=== PATIENT | female | born 1965 | race Two or more races ===

== ENCOUNTER 2018-03-06 23:02 | Emergency (ER) | payer OTHER ==
[2018-03-07] MEDS ORDERED: ONDANSETRON 4 MG INJ (00:20)
[2018-03-07 00:23] LABS: ADD MAN DIFF? NO
[2018-03-07] MEDS: morphine 4 MG/ML VIAL IV ×2 (00:23→01:52)
[2018-03-07] MEDS: SOD CHLORIDE 0.9% 1,000 ML IV (00:23)
[2018-03-07 00:24] LABS: BASOPHIL # 0.1 10^3/ul (0.0-0.1); BASOPHILS % 0.7 % (0.0-2.0); EOSINOPHILS # 0.4 10^3/ul (0.0-0.5); EOSINOPHILS % 5.5 % (0.0-7.0); HEMATOCRIT 40.6 % (37.0-47.0); HEMOGLOBIN 14.5 g/dl (12.0-16.0); LYMPHOCYTES # 2.2 10^3/ul (0.8-2.9); LYMPHOCYTES % 29.8 % (15.0-51.0); MEAN CORPUSCULAR HEMOGLOBIN 32.6 pg (29.0-33.0); MEAN CORPUSCULAR HGB CONC 35.7 g/dl (32.0-37.0); MEAN CORPUSCULAR VOLUME 91.2 fl (82.0-101.0); MONOCYTE # 0.6 10^3/ul (0.3-0.9); NEUTROPHIL # 4.2 10^3/ul (1.6-7.5); NEUTROPHILS % 55.9 % (39.0-77.0); PLATELET COUNT 304 10^3/UL (140-415); RED BLOOD COUNT 4.45 10^6/ul (4.20-5.40); RED CELL DISTRIBUTION WIDTH 11.6 % (11.5-14.5)
[2018-03-07 00:24] LABS: WHITE BLOOD COUNT 7.5 10^3/ul (4.8-10.8)
[2018-03-07 00:45] LABS: ALANINE AMINOTRANSFERASE 61 IU/L (13-69); ALBUMIN 4.5 g/dl (3.3-4.9); ALKALINE PHOSPHATASE 104 IU/L (42-121); ANION GAP 17 (8-16); ASPARTATE AMINO TRANSFERASE 32 IU/L (15-46); BILIRUBIN,INDIRECT 0.3 mg/dl (0-1.1); BILIRUBIN,TOTAL 0.3 mg/dl (0.2-1.3); BLOOD UREA NITROGEN 8 mg/dl (7-20); CALCIUM 9.8 mg/dl (8.4-10.2); CARBON DIOXIDE 27 mmol/L (21-31); CHLORIDE 100 mmol/L (97-110); CREATININE 0.46 mg/dl (0.44-1.00); GLUCOSE 275 mg/dl (70-220); LIPASE 102 U/L (23-300); POTASSIUM 4.1 mmol/L (3.5-5.1); SODIUM 140 mmol/L (135-144); TOTAL PROTEIN 7.5 g/dl (6.1-8.1)
[2018-03-07 00:46] LABS: ADD UMIC NO; UR ASCORBIC ACID NEGATIVE (NEGATIVE); UR BACTERIA FEW /HPF (NONE SEEN); UR BILIRUBIN (Dip) NEGATIVE (NEGATIVE); UR BLOOD (Dip) NEGATIVE (NEGATIVE); UR CLARITY SLIGHTLY CLOUDY (CLEAR); UR COLOR YELLOW (YELLOW); UR GLUCOSE (Dip) 3+ mg/dL (NEGATIVE); UR KETONES (Dip) NEGATIVE (NEGATIVE); UR LEUKOCYTE ESTERASE (Dip) NEGATIVE Leu/ul (NEGATIVE); UR NITRITE (Dip) NEGATIVE (NEGATIVE); UR RBC 3 /HPF (0-5); UR SPECIFIC GRAVITY (Dip) 1.033 (1.003-1.030); UR SQUAMOUS EPITHELIAL CELL FEW /HPF (FEW); UR TOTAL PROTEIN (Dip) NEGATIVE (NEGATIVE); UR UROBILINOGEN (Dip) NEGATIVE (NEGATIVE); UR WBC 1 /HPF (0-5)
[2018-03-07 00:57] LABS: TROPONIN-I < 0.010 ng/ml (0.000-0.120)
[2018-03-07] MEDS: KETOROLAC 30 MG INJ IV (01:53)
[2018-03-07] MEDS: HYDROmorphONE 0.5 MG/0.5 ML SYG IV (04:09)
== END 2018-03-07 06:04 | disposition short-term general hospital (02) ==
LOC: E/R 23:02
DX: K29.80 Duodenitis without bleeding (principal); E11.65 Type 2 diabetes mellitus with hyperglycemia; I10 Essential (primary) hypertension; E11.9 Type 2 diabetes mellitus without complications; Z79.84 Long term (current) use of oral hypoglycemic drugs
CPT/HCPCS: 36415; 74176; 80053; 81001; 81003; 83690; 84484; 85025; 96374; 96375; 96376; 99285-25

== ENCOUNTER 2018-06-23 06:10 | Emergency (ER) | payer OTHER ==
[2018-06-23] MEDS: HYDROmorphONE 1 MG/ML SYG IV (06:41)
[2018-06-23] MEDS: ONDANSETRON 4 MG INJ IV (06:41)
[2018-06-23] MEDS: SOD CHLORIDE 0.9% 1,000 ML IV (06:41)
[2018-06-23 06:48] LABS: ADD MAN DIFF? NO
[2018-06-23 06:51] LABS: BASOPHIL # 0.1 10^3/ul (0.0-0.1); BASOPHILS % 0.7 % (0.0-2.0); EOSINOPHILS # 0.5 10^3/ul (0.0-0.5); EOSINOPHILS % 5.2 % (0.0-7.0); HEMATOCRIT 40.7 % (37.0-47.0); HEMOGLOBIN 14.4 g/dl (12.0-16.0); LYMPHOCYTES # 3.6 10^3/ul (0.8-2.9); LYMPHOCYTES % 36.2 % (15.0-51.0); MEAN CORPUSCULAR HEMOGLOBIN 32.2 pg (29.0-33.0); MEAN CORPUSCULAR HGB CONC 35.4 g/dl (32.0-37.0); MEAN CORPUSCULAR VOLUME 91.1 fl (82.0-101.0); MEAN PLATELET VOLUME 9.9 fl (7.4-10.4); MONOCYTE # 0.7 10^3/ul (0.3-0.9); MONOCYTES % 7.3 % (0.0-11.0); NEUTROPHIL # 5.1 10^3/ul (1.6-7.5); NEUTROPHILS % 50.4 % (39.0-77.0); PLATELET COUNT 298 10^3/UL (140-415); RED BLOOD COUNT 4.47 10^6/ul (4.20-5.40); RED CELL DISTRIBUTION WIDTH 11.9 % (11.5-14.5)
[2018-06-23 06:53] LABS: ADD UMIC NO; UR ASCORBIC ACID NEGATIVE (NEGATIVE); UR BILIRUBIN (Dip) NEGATIVE (NEGATIVE); UR BLOOD (Dip) NEGATIVE (NEGATIVE); UR CLARITY SLIGHTLY CLOUDY (CLEAR); UR COLOR YELLOW (YELLOW); UR GLUCOSE (Dip) NEGATIVE (NEGATIVE); UR KETONES (Dip) NEGATIVE (NEGATIVE); UR LEUKOCYTE ESTERASE (Dip) NEGATIVE Leu/ul (NEGATIVE); UR MUCUS FEW /HPF (NONE SEEN); UR NITRITE (Dip) NEGATIVE (NEGATIVE); UR RBC 2 /HPF (0-5); UR SPECIFIC GRAVITY (Dip) 1.013 (1.003-1.030); UR TOTAL PROTEIN (Dip) NEGATIVE (NEGATIVE); UR UROBILINOGEN (Dip) NEGATIVE (NEGATIVE); UR WBC 7 /HPF (0-5)
[2018-06-23 07:16] LABS: ALANINE AMINOTRANSFERASE 41 IU/L (13-69); ALBUMIN 4.1 g/dl (3.3-4.9); ALBUMIN/GLOBULIN RATIO 1.05; ALKALINE PHOSPHATASE 88 IU/L (42-121); ANION GAP 13 (5-13); ASPARTATE AMINO TRANSFERASE 26 IU/L (15-46); BILIRUBIN,INDIRECT 0.9 mg/dl (0-1.1); BILIRUBIN,TOTAL 0.9 mg/dl (0.2-1.3); BLOOD UREA NITROGEN 7 mg/dl (7-20); CALCIUM 10.2 mg/dl (8.4-10.2); CARBON DIOXIDE 23 mmol/L (21-31); CHLORIDE 106 mmol/L (97-110); CREATININE 0.37 mg/dl (0.44-1.00); GLUCOSE 149 mg/dl (70-220); LIPASE 106 U/L (23-300); POTASSIUM 3.8 mmol/L (3.5-5.1); SODIUM 142 mmol/L (135-144)
[2018-06-23 07:26] LABS: INR 0.89; PROTIME 12.1 Sec (11.9-14.9); PT RATIO 0.9
[2018-06-23 07:27] LABS: PARTIAL THROMBOPLASTIN TIME 31.6 Sec (23.0-35.0)
[2018-06-23] MEDS: DICYCLOMINE 20 MG INJ IM (09:18)
[2018-06-23] MEDS: HYDROCODONE/APAP (10/325) TAB PO (09:48)
== END 2018-06-23 10:12 | disposition home or self-care (01) ==
LOC: E/R 06:10
DX: R10.11 Right upper quadrant pain (principal); R19.7 Diarrhea, unspecified; E11.9 Type 2 diabetes mellitus without complications; I10 Essential (primary) hypertension; Z79.84 Long term (current) use of oral hypoglycemic drugs
CPT/HCPCS: 36415; 74176; 80053; 81001; 81003; 83690; 85025; 85610; 85730; 96372; 96374; 96375; 99285-25

== ENCOUNTER 2019-01-10 00:36 | Emergency (ER) | payer OTHER ==
[2019-01-10 01:44] LABS: ADD MAN DIFF? NO
[2019-01-10 01:47] LABS: BASOPHIL # 0.1 10^3/ul (0.0-0.1); BASOPHILS % 0.6 % (0.0-2.0); EOSINOPHILS # 0.5 10^3/ul (0.0-0.5); EOSINOPHILS % 6.2 % (0.0-7.0); HEMATOCRIT 37.1 % (37.0-47.0); HEMOGLOBIN 12.9 g/dl (12.0-16.0); LYMPHOCYTES # 2.2 10^3/ul (0.8-2.9); LYMPHOCYTES % 28.3 % (15.0-51.0); MEAN CORPUSCULAR HEMOGLOBIN 31.9 pg (29.0-33.0); MEAN CORPUSCULAR HGB CONC 34.8 g/dl (32.0-37.0); MEAN CORPUSCULAR VOLUME 91.6 fl (82.0-101.0); MEAN PLATELET VOLUME 10.2 fl (7.4-10.4); MONOCYTE # 0.5 10^3/ul (0.3-0.9); MONOCYTES % 6.6 % (0.0-11.0); NEUTROPHIL # 4.5 10^3/ul (1.6-7.5); NEUTROPHILS % 58.2 % (39.0-77.0); PLATELET COUNT 274 10^3/UL (140-415); RED BLOOD COUNT 4.05 10^6/ul (4.20-5.40); RED CELL DISTRIBUTION WIDTH 12.3 % (11.5-14.5)
[2019-01-10 01:47] LABS: WHITE BLOOD COUNT 7.7 10^3/ul (4.8-10.8)
[2019-01-10] MEDS: ONDANSETRON 4 MG INJ IV (01:52)
[2019-01-10] MEDS: HYDROmorphONE 1 MG/ML SYG IV (01:52)
[2019-01-10 02:04] LABS: ANION GAP 11 (5-13); BLOOD UREA NITROGEN 8 mg/dl (7-20); CALCIUM 9.7 mg/dl (8.4-10.2); CARBON DIOXIDE 26 mmol/L (21-31); CHLORIDE 105 mmol/L (97-110); CREATININE 0.35 mg/dl (0.44-1.00); Estimated GFR > 60 mL/min (>60); GLUCOSE 248 mg/dl (70-220); POTASSIUM 3.8 mmol/L (3.5-5.1); SODIUM 142 mmol/L (135-144)
[2019-01-10 02:15] LABS: TROPONIN-I < 0.012 ng/ml (0.000-0.120)
== END 2019-01-10 04:36 | disposition home or self-care (01) ==
LOC: E/R 00:36
DX: S09.90XA Unspecified injury of head, initial encounter (principal); S16.1XXA Strain of muscle, fascia and tendon at neck level, initial encounter; S39.012A Strain of muscle, fascia and tendon of lower back, initial encounter; S40.012A Contusion of left shoulder, initial encounter; I10 Essential (primary) hypertension; E11.9 Type 2 diabetes mellitus without complications; W18.09XA Striking against other object with subsequent fall, initial encounter; Y92.009 Unspecified place in unspecified non-institutional (private) residence as the place of occurrence of the external cause; Z79.84 Long term (current) use of oral hypoglycemic drugs
CPT/HCPCS: 70450; 72125; 72131; 73030; 80048; 84484; 84703; 85025; 93005; 96374; 96375; 99285-25

== ENCOUNTER 2019-02-22 12:41 | Emergency (ER) | payer OTHER ==
[2019-02-22 13:30] LABS: ADD MAN DIFF? NO
[2019-02-22 13:33] LABS: WHITE BLOOD COUNT 7.3 10^3/ul (4.8-10.8)
[2019-02-22 13:33] LABS: BASOPHILS % 0.5 % (0.0-2.0); EOSINOPHILS # 0.4 10^3/ul (0.0-0.5); EOSINOPHILS % 4.8 % (0.0-7.0); HEMATOCRIT 41.8 % (37.0-47.0); HEMOGLOBIN 14.3 g/dl (12.0-16.0); LYMPHOCYTES # 2.4 10^3/ul (0.8-2.9); LYMPHOCYTES % 32.8 % (15.0-51.0); MEAN CORPUSCULAR HEMOGLOBIN 31.4 pg (29.0-33.0); MEAN CORPUSCULAR HGB CONC 34.2 g/dl (32.0-37.0); MEAN CORPUSCULAR VOLUME 91.9 fl (82.0-101.0); MONOCYTE # 0.4 10^3/ul (0.3-0.9); MONOCYTES % 5.7 % (0.0-11.0); NEUTROPHIL # 4.1 10^3/ul (1.6-7.5); NEUTROPHILS % 56.1 % (39.0-77.0); PLATELET COUNT 277 10^3/UL (140-415); RED BLOOD COUNT 4.55 10^6/ul (4.20-5.40); RED CELL DISTRIBUTION WIDTH 11.9 % (11.5-14.5)
[2019-02-22] MEDS: ONDANSETRON 4 MG INJ IV (13:33)
[2019-02-22] MEDS: morphine 4 MG/ML VIAL IV (13:33)
[2019-02-22] MEDS: SOD CHLORIDE 0.9% 1,000 ML IV (13:33)
[2019-02-22] MEDS: LACTATED RINGER'S 1,000 ML IV (13:33)
[2019-02-22 13:40] LABS: URINE BLOOD (Dip) POC Negative (NEGATIVE); URINE GLUCOSE (Dip) POC Negative (NEGATIVE); URINE KETONES (Dip) POC Negative (NEGATIVE); URINE LEUKOCYTE EST (Dip) POC Negative (NEGATIVE); URINE NITRITE (Dip) POC Negative (NEGATIVE); URINE TOTAL PROTEIN POC 1+ (NEGATIVE)
[2019-02-22 13:40] LABS: URINE PH (Dip) POC 8.5 (5.0-8.5)
[2019-02-22 13:54] LABS: ALANINE AMINOTRANSFERASE 26 IU/L (13-69); ALBUMIN 4.5 g/dl (3.3-4.9); ALBUMIN/GLOBULIN RATIO 1.25; ALKALINE PHOSPHATASE 77 IU/L (42-121); ANION GAP 10 (5-13); ASPARTATE AMINO TRANSFERASE 20 IU/L (15-46); BILIRUBIN,INDIRECT 0.7 mg/dl (0-1.1); BILIRUBIN,TOTAL 0.7 mg/dl (0.2-1.3); BLOOD UREA NITROGEN 6 mg/dl (7-20); CALCIUM 9.8 mg/dl (8.4-10.2); CARBON DIOXIDE 28 mmol/L (21-31); CHLORIDE 104 mmol/L (97-110); CREATININE 0.42 mg/dl (0.44-1.00); Estimated GFR > 60 mL/min (>60); GLUCOSE 121 mg/dl (70-220); LIPASE 97 U/L (23-300); POTASSIUM 3.8 mmol/L (3.5-5.1); SODIUM 142 mmol/L (135-144); TOTAL PROTEIN 8.1 g/dl (6.1-8.1)
== END 2019-02-22 15:03 | disposition home or self-care (01) ==
LOC: E/R 12:41
DX: R10.84 Generalized abdominal pain (principal); R11.2 Nausea with vomiting, unspecified; R19.7 Diarrhea, unspecified; I10 Essential (primary) hypertension; E11.9 Type 2 diabetes mellitus without complications; Z79.84 Long term (current) use of oral hypoglycemic drugs
CPT/HCPCS: 36415; 74176; 80053; 81003; 82962; 83690; 85025; 96361; 96374; 96375; 99285-25

== ENCOUNTER 2019-03-06 02:19 | Observation (INO) | payer OTHER ==
[2019-03-06 03:02] LABS: ADD MAN DIFF? NO
[2019-03-06 03:04] LABS: WHITE BLOOD COUNT 8.1 10^3/ul (4.8-10.8)
[2019-03-06 03:04] LABS: BASOPHILS % 0.5 % (0.0-2.0); EOSINOPHILS # 0.4 10^3/ul (0.0-0.5); EOSINOPHILS % 4.7 % (0.0-7.0); HEMATOCRIT 39.7 % (37.0-47.0); HEMOGLOBIN 13.8 g/dl (12.0-16.0); LYMPHOCYTES # 2.8 10^3/ul (0.8-2.9); LYMPHOCYTES % 33.9 % (15.0-51.0); MEAN CORPUSCULAR HEMOGLOBIN 31.5 pg (29.0-33.0); MEAN CORPUSCULAR HGB CONC 34.8 g/dl (32.0-37.0); MEAN CORPUSCULAR VOLUME 90.6 fl (82.0-101.0); MEAN PLATELET VOLUME 10.1 fl (7.4-10.4); MONOCYTE # 0.5 10^3/ul (0.3-0.9); MONOCYTES % 5.5 % (0.0-11.0); NEUTROPHIL # 4.5 10^3/ul (1.6-7.5); NEUTROPHILS % 55.2 % (39.0-77.0); PLATELET COUNT 265 10^3/UL (140-415); RED BLOOD COUNT 4.38 10^6/ul (4.20-5.40); RED CELL DISTRIBUTION WIDTH 11.6 % (11.5-14.5)
[2019-03-06] MEDS: ONDANSETRON 4 MG INJ IV ×2 (03:25→04:39)
[2019-03-06] MEDS: morphine 4 MG/ML VIAL IV ×2 (03:25→04:39)
[2019-03-06 03:29] LABS: ANION GAP 9 (5-13); BLOOD UREA NITROGEN 11 mg/dl (7-20); CALCIUM 9.4 mg/dl (8.4-10.2); CARBON DIOXIDE 25 mmol/L (21-31); CHLORIDE 109 mmol/L (97-110); CREATININE 0.51 mg/dl (0.44-1.00); Estimated GFR > 60 mL/min (>60); GLUCOSE 168 mg/dl (70-220); POTASSIUM 3.6 mmol/L (3.5-5.1); SODIUM 143 mmol/L (135-144)
[2019-03-06 03:39] LABS: TROPONIN-I < 0.012 ng/ml (0.000-0.120)
[2019-03-06 03:43] LABS: ALANINE AMINOTRANSFERASE 29 IU/L (13-69); ALBUMIN 4.4 g/dl (3.3-4.9); ALKALINE PHOSPHATASE 79 IU/L (42-121); ASPARTATE AMINO TRANSFERASE 24 IU/L (15-46); BILIRUBIN,INDIRECT 0.4 mg/dl (0-1.1); BILIRUBIN,TOTAL 0.4 mg/dl (0.2-1.3); LIPASE 140 U/L (23-300); TOTAL PROTEIN 7.6 g/dl (6.1-8.1)
[2019-03-06] MEDS ORDERED: ACETAMINOPHEN 325 MG TAB PO (08:30)
[2019-03-06] MEDS ORDERED: NACL 0.9% 3 ML SYG IV (08:30)
[2019-03-06] MEDS ORDERED: DOCUSATE SODIUM 100 MG CAP PO (08:30)
[2019-03-06] MEDS ORDERED: LORAZEPAM 0.5 MG TAB PO (08:30)
[2019-03-06] MEDS: DICYCLOMINE 10 MG CAP PO (10:19)
[2019-03-06] MEDS: FAMOTIDINE 20 MG TAB PO ×2 (10:19→21:14)
[2019-03-06] MEDS: BENAZEPRIL 40 MG TAB PO (10:53)
[2019-03-06] MEDS: CITALOPRAM 20 MG TAB PO (10:53)
[2019-03-06] MEDS: MAGNESIUM CITRATE 300 ML BTL PO (12:29)
[2019-03-06] MEDS ORDERED: GLUCOSE GEL 15 GRAM TUBE PO ×2 (12:30)
[2019-03-06] MEDS ORDERED: DEXTROSE 50% 50 ML SYRINGE IV ×2 (12:30)
[2019-03-06] MEDS ORDERED: GLUCOSE GEL 15 GRAM TUBE BUCCAL (12:30)
[2019-03-06] MEDS ORDERED: GLUCAGON 1 MG INJ IM (12:30)
[2019-03-06] MEDS: SUCRALFATE 1 GM TAB PO ×3 (15:50→21:14)
[2019-03-06] MEDS: INSULIN ASPART [NOVOLOG] 3 ML PEN SC ×2 (17:44→21:00)
[2019-03-06] MEDS: metFORMIN 500 MG TAB PO (17:45)
[2019-03-06] MEDS: KETOROLAC 15 MG INJ IV ×2 (17:46→23:50)
[2019-03-07] MEDS: DEXTROSE 5%-0.45% NACL 1,000 ML IV ×2 (01:43→10:30)
[2019-03-07] MEDS: KETOROLAC 15 MG INJ IV (06:33)
[2019-03-07 06:50] LABS: ADD MAN DIFF? NO
[2019-03-07 06:56] LABS: BASOPHILS % 0.5 % (0.0-2.0); EOSINOPHILS # 0.6 10^3/ul (0.0-0.5); EOSINOPHILS % 9.2 % (0.0-7.0); HEMATOCRIT 35.8 % (37.0-47.0); HEMOGLOBIN 12.4 g/dl (12.0-16.0); LYMPHOCYTES # 2.4 10^3/ul (0.8-2.9); LYMPHOCYTES % 39.7 % (15.0-51.0); MEAN CORPUSCULAR HEMOGLOBIN 31.5 pg (29.0-33.0); MEAN CORPUSCULAR HGB CONC 34.6 g/dl (32.0-37.0); MEAN CORPUSCULAR VOLUME 90.9 fl (82.0-101.0); MEAN PLATELET VOLUME 10.3 fl (7.4-10.4); MONOCYTE # 0.4 10^3/ul (0.3-0.9); MONOCYTES % 6.7 % (0.0-11.0); NEUTROPHIL # 2.6 10^3/ul (1.6-7.5); NEUTROPHILS % 43.7 % (39.0-77.0); PLATELET COUNT 222 10^3/UL (140-415); RED BLOOD COUNT 3.94 10^6/ul (4.20-5.40); RED CELL DISTRIBUTION WIDTH 11.9 % (11.5-14.5)
[2019-03-07 07:20] LABS: ANION GAP 7 (5-13); BLOOD UREA NITROGEN 7 mg/dl (7-20); CALCIUM 9.2 mg/dl (8.4-10.2); CARBON DIOXIDE 27 mmol/L (21-31); CHLORIDE 109 mmol/L (97-110); CREATININE 0.48 mg/dl (0.44-1.00); Estimated GFR > 60 mL/min (>60); GLUCOSE 136 mg/dl (70-220); SODIUM 143 mmol/L (135-144)
[2019-03-07 07:52] LABS: HEMOGLOBIN A1C 5.6 % (0-5.9)
[2019-03-07] MEDS: INSULIN ASPART [NOVOLOG] 3 ML PEN SC ×2 (07:55→11:50)
[2019-03-07] MEDS: metFORMIN 500 MG TAB PO (07:55)
[2019-03-07] MEDS: FAMOTIDINE 20 MG TAB PO (08:50)
[2019-03-07] MEDS: SUCRALFATE 1 GM TAB PO ×2 (08:50→13:12)
[2019-03-07] MEDS: BENAZEPRIL 40 MG TAB PO (08:50)
[2019-03-07] MEDS: CITALOPRAM 20 MG TAB PO (08:50)
[2019-03-13] MEDS ORDERED: KETAMINE (50 MG/ML) 10 ML VIAL (08:02)
[2019-03-13] MEDS ORDERED: LIDOCAINE 2% (SDV) 5 ML INJ (08:02)
== END 2019-03-07 15:56 | disposition home or self-care (01) ==
LOC: E/R 02:19 → TEL 04:09
DX: R55 Syncope and collapse (principal); G89.29 Other chronic pain; R10.9 Unspecified abdominal pain; K29.50 Unspecified chronic gastritis without bleeding; I10 Essential (primary) hypertension; E11.9 Type 2 diabetes mellitus without complications; Z79.84 Long term (current) use of oral hypoglycemic drugs
CPT/HCPCS: 36415; 70450; 74176; 80048; 80076; 82962; 83036; 83690; 84443; 84484; 85025; 93005; 96374; 96375; 99285-25; G0378

== ENCOUNTER 2019-04-06 17:25 | Inpatient (IN) | payer OTHER ==
[2019-04-06 18:54] LABS: ADD MAN DIFF? NO
[2019-04-06 18:56] LABS: WHITE BLOOD COUNT 8.7 10^3/ul (4.8-10.8)
[2019-04-06 18:56] LABS: BASOPHIL # 0.1 10^3/ul (0.0-0.1); BASOPHILS % 0.6 % (0.0-2.0); EOSINOPHILS # 0.4 10^3/ul (0.0-0.5); HEMATOCRIT 37.7 % (37.0-47.0); HEMOGLOBIN 13.6 g/dl (12.0-16.0); LYMPHOCYTES # 2.2 10^3/ul (0.8-2.9); LYMPHOCYTES % 25.6 % (15.0-51.0); MEAN CORPUSCULAR HEMOGLOBIN 31.8 pg (29.0-33.0); MEAN CORPUSCULAR HGB CONC 36.1 g/dl (32.0-37.0); MEAN CORPUSCULAR VOLUME 88.1 fl (82.0-101.0); MEAN PLATELET VOLUME 9.7 fl (7.4-10.4); MONOCYTE # 0.5 10^3/ul (0.3-0.9); NEUTROPHIL # 5.5 10^3/ul (1.6-7.5); NEUTROPHILS % 63.6 % (39.0-77.0); PLATELET COUNT 293 10^3/UL (140-415); RED BLOOD COUNT 4.28 10^6/ul (4.20-5.40); RED CELL DISTRIBUTION WIDTH 11.9 % (11.5-14.5)
[2019-04-06 19:04] LABS: ADD UMIC YES; UR ASCORBIC ACID NEGATIVE (NEGATIVE); UR BILIRUBIN (Dip) NEGATIVE (NEGATIVE); UR BLOOD (Dip) NEGATIVE (NEGATIVE); UR CLARITY SLIGHTLY CLOUDY (CLEAR); UR COLOR YELLOW (YELLOW); UR GLUCOSE (Dip) NEGATIVE (NEGATIVE); UR KETONES (Dip) NEGATIVE (NEGATIVE); UR LEUKOCYTE ESTERASE (Dip) NEGATIVE Leu/ul (NEGATIVE); UR MUCUS MANY /HPF (NONE SEEN); UR NITRITE (Dip) NEGATIVE (NEGATIVE); UR RBC 1 /HPF (0-5); UR SPECIFIC GRAVITY (Dip) 1.024 (1.003-1.030); UR SQUAMOUS EPITHELIAL CELL FEW /HPF (FEW); UR TOTAL PROTEIN (Dip) 1+ mg/dl (NEGATIVE); UR UROBILINOGEN (Dip) NEGATIVE (NEGATIVE); UR WBC 2 /HPF (0-5)
[2019-04-06 19:16] LABS: ALANINE AMINOTRANSFERASE 29 IU/L (13-69); ALBUMIN 4.3 g/dl (3.3-4.9); ALBUMIN/GLOBULIN RATIO 1.26; ALKALINE PHOSPHATASE 74 IU/L (42-121); ANION GAP 9 (5-13); ASPARTATE AMINO TRANSFERASE 18 IU/L (15-46); BILIRUBIN,INDIRECT 0.5 mg/dl (0-1.1); BILIRUBIN,TOTAL 0.5 mg/dl (0.2-1.3); BLOOD UREA NITROGEN 7 mg/dl (7-20); CALCIUM 10.1 mg/dl (8.4-10.2); CARBON DIOXIDE 28 mmol/L (21-31); CHLORIDE 104 mmol/L (97-110); CREATININE 0.52 mg/dl (0.44-1.00); Estimated GFR > 60 mL/min (>60); GLUCOSE 147 mg/dl (70-220); LIPASE 58 U/L (23-300); POTASSIUM 3.6 mmol/L (3.5-5.1); SODIUM 141 mmol/L (135-144); TOTAL PROTEIN 7.7 g/dl (6.1-8.1)
[2019-04-06] MEDS: FAMOTIDINE 20 MG INJ IV (19:16)
[2019-04-06] MEDS: LIDOCAINE/MYLANTA 40 ML BTL PO (19:16)
[2019-04-06] MEDS: METOCLOPRAMIDE 10 MG INJ IV (19:16)
[2019-04-06] MEDS: SOD CHLORIDE 0.9% 1,000 ML IV ×2 (19:16→23:50)
[2019-04-06] MEDS: morphine 4 MG/ML VIAL IV (19:57)
[2019-04-06] MEDS ORDERED: ACETAMINOPHEN 325 MG TAB PO ×2 (21:30→23:30)
[2019-04-06] MEDS ORDERED: ONDANSETRON 4 MG INJ IV (21:30)
[2019-04-06] MEDS ORDERED: LORAZEPAM 0.5 MG TAB PO (23:30)
[2019-04-06] MEDS: HYDROmorphONE 0.5 MG/0.5 ML SYG IV (23:40)
[2019-04-06] MEDS ORDERED: GLUCAGON 1 MG INJ IM (23:45)
[2019-04-06] MEDS ORDERED: GLUCOSE GEL 15 GRAM TUBE BUCCAL (23:45)
[2019-04-06] MEDS ORDERED: GLUCOSE GEL 15 GRAM TUBE PO ×2 (23:45)
[2019-04-06] MEDS ORDERED: DEXTROSE 50% 50 ML SYRINGE IV ×2 (23:45)
[2019-04-07] MEDS: PANTOPRAZOLE (EC) 40 MG TAB PO (06:32)
[2019-04-07] MEDS: HYDROmorphONE 0.5 MG/0.5 ML SYG IV ×4 (07:28→21:56)
[2019-04-07] MEDS: SUCRALFATE 1 GM TAB PO ×4 (07:33→20:50)
[2019-04-07] MEDS: INSULIN ASPART [NOVOLOG] 3 ML PEN SC ×4 (07:35→20:51)
[2019-04-07] MEDS: BENAZEPRIL 40 MG TAB PO (09:08)
[2019-04-07] MEDS: CITALOPRAM 20 MG TAB PO (09:08)
[2019-04-07] MEDS: SOD CHLORIDE 0.9% 1,000 ML IV ×3 (09:11→21:58)
[2019-04-07] MEDS: AMLODIPINE 5 MG TAB GTB (12:00)
[2019-04-07] MEDS: ONDANSETRON 4 MG INJ IV ×2 (13:35→19:53)
[2019-04-08] MEDS: HYDROmorphONE 0.5 MG/0.5 ML SYG IV ×5 (03:55→21:30)
[2019-04-08] MEDS: SOD CHLORIDE 0.9% 1,000 ML IV ×3 (04:41→19:00)
[2019-04-08] MEDS: PANTOPRAZOLE (EC) 40 MG TAB PO (06:18)
[2019-04-08] MEDS: SUCRALFATE 1 GM TAB PO ×4 (08:23→21:30)
[2019-04-08] MEDS: AMLODIPINE 5 MG TAB GTB (08:24)
[2019-04-08] MEDS: BENAZEPRIL 40 MG TAB PO (08:24)
[2019-04-08] MEDS: CITALOPRAM 20 MG TAB PO (08:24)
[2019-04-08] MEDS: ONDANSETRON 4 MG INJ IV ×3 (08:25→18:16)
[2019-04-08] MEDS: INSULIN ASPART [NOVOLOG] 3 ML PEN SC ×4 (09:00→21:00)
[2019-04-08] MEDS: ERYTHROMYCIN BASE (DR) 250 MG CAP PO ×2 (14:00→23:16)
[2019-04-08] MEDS: METOCLOPRAMIDE 10 MG INJ IV (14:51)
[2019-04-09] MEDS: ONDANSETRON 4 MG INJ IV (01:48)
[2019-04-09] MEDS: SOD CHLORIDE 0.9% 1,000 ML IV ×2 (05:24→16:01)
[2019-04-09] MEDS: PANTOPRAZOLE (EC) 40 MG TAB PO (06:46)
[2019-04-09] MEDS: SUCRALFATE 1 GM TAB PO ×4 (06:46→20:09)
[2019-04-09] MEDS: ERYTHROMYCIN BASE (DR) 250 MG CAP PO ×3 (06:46→22:58)
[2019-04-09] MEDS: HYDROmorphONE 0.5 MG/0.5 ML SYG IV (06:47)
[2019-04-09] MEDS: INSULIN ASPART [NOVOLOG] 3 ML PEN SC ×4 (07:35→20:25)
[2019-04-09] MEDS: AMLODIPINE 5 MG TAB GTB (08:21)
[2019-04-09] MEDS: CITALOPRAM 20 MG TAB PO (08:22)
[2019-04-09] MEDS: BENAZEPRIL 40 MG TAB PO (08:22)
[2019-04-09] MEDS: traMADol 50 MG TAB PO (11:04)
[2019-04-09 11:37] LABS: HEMOGLOBIN A1C 5.8 % (0-5.9)
[2019-04-09 11:46] LABS: LIPASE 94 U/L (23-300)
[2019-04-09] MEDS: METOCLOPRAMIDE 10 MG INJ IV ×3 (12:07→23:02)
[2019-04-09] MEDS: IOHEXOL 14.3 MG(I)/ML (ADULT) BTL PO (16:02)
[2019-04-09] MEDS: IOHEXOL 300MG/ML 150 ML BTL (19:20)
[2019-04-09] MEDS: SOD CHLORIDE 0.9% 100 ML (19:20)
[2019-04-10] MEDS: ERYTHROMYCIN BASE (DR) 250 MG CAP PO (05:26)
[2019-04-10] MEDS: METOCLOPRAMIDE 10 MG INJ IV (05:26)
[2019-04-10] MEDS: PANTOPRAZOLE (EC) 40 MG TAB PO (05:26)
[2019-04-10 05:44] LABS: ALANINE AMINOTRANSFERASE 28 IU/L (13-69); ALBUMIN 4.1 g/dl (3.3-4.9); ALBUMIN/GLOBULIN RATIO 1.17; ALKALINE PHOSPHATASE 70 IU/L (42-121); ANION GAP 10 (5-13); ASPARTATE AMINO TRANSFERASE 22 IU/L (15-46); BILIRUBIN,INDIRECT 0.7 mg/dl (0-1.1); BILIRUBIN,TOTAL 0.7 mg/dl (0.2-1.3); BLOOD UREA NITROGEN 6 mg/dl (7-20); CALCIUM 9.6 mg/dl (8.4-10.2); CARBON DIOXIDE 28 mmol/L (21-31); CHLORIDE 102 mmol/L (97-110); Estimated GFR > 60 mL/min (>60); GLUCOSE 83 mg/dl (70-220); POTASSIUM 3.5 mmol/L (3.5-5.1); SODIUM 140 mmol/L (135-144); TOTAL PROTEIN 7.6 g/dl (6.1-8.1)
[2019-04-10] MEDS: INSULIN ASPART [NOVOLOG] 3 ML PEN SC (07:35)
[2019-04-10] MEDS: SUCRALFATE 1 GM TAB PO (08:18)
[2019-04-10] MEDS: CITALOPRAM 20 MG TAB PO (08:18)
[2019-04-10] MEDS: BENAZEPRIL 40 MG TAB PO (08:19)
[2019-04-10] MEDS: AMLODIPINE 5 MG TAB GTB (08:20)
== END 2019-04-10 11:30 | disposition home or self-care (01) | DRG 74 ==
LOC: E/R 17:25 → MS3 21:15
DX: E11.43 Type 2 diabetes mellitus with diabetic autonomic (poly)neuropathy (principal); K31.84 Gastroparesis; I10 Essential (primary) hypertension; Z76.5 Malingerer [conscious simulation]
CPT/HCPCS: 36415; 73060; 73080-LT; 74177; 78264; 80053; 81001; 81025; 82962; 83036; 83690; 85025; 93306; 96374; 96375; 99217; 99285-25